=== PATIENT | male | born 2000 | race African-American/Black ===

== ENCOUNTER → 2019-01-26 | Outpatient (CLI) | payer OTHER ==
[~2019-01-26] MED LIST: ALBU2.5V8 IH; AZIT250T6 PO; CEPH-264 PO
--- NOTE | 2019-01-26 15:38 | RAD ---
Examination: Ultrasound left groin HISTORY: History of left groin pain COMPARISON: None available. Findings/ impression: Small left inguinal lymph nodes identified with the largest measuring 1.1 cm. No evidence of hernia identified. Electronically signed by: Alvin Cruz MD (01/26/2019 3:35 PM) [facility]
== END | disposition home or self-care (01) ==
LOC: US 14:33
PROVIDERS: ATTEND Family Medicine
DX: R10.32 Left lower quadrant pain (principal)
CPT/HCPCS: 76881

== ENCOUNTER → 2019-02-12 | Outpatient (CLI) | payer OTHER ==
--- NOTE | 2019-02-12 16:21 | RAD ---
EXAM: CT Abdomen and Pelvis without IV contrast CLINICAL HISTORY: Inguinal hernia, pain. COMPARISON: none TECHNIQUE: Helical CT of the abdomen and pelvis without intravenous contrast. Axial, coronal and sagittal reformatted images were generated. PQRS compliance statement - One or more of the following individualized dose reduction techniques were utilized for this study: 1. Automated exposure control 2. Adjustment of the mA and/or kV according to patient size 3. Use of iterative reconstruction technique FINDINGS: Lack of intravenous contrast limits evaluation of solid organs, vasculature, and lymph nodes. Lower chest: Lung bases are clear. Abdomen and Pelvis: No focal liver lesion. Gallbladder is normal. No biliary ductal dilatation. Pancreas is unremarkable. Spleen is normal in appearance with small splenule. Adrenal glands are unremarkable. No renal tract calculus. Bladder is decompressed otherwise unremarkable. No hydronephrosis or hydroureter. Moderate colonic stool content is seen. Appendix is normal. No evidence of bowel obstruction. No abdominal or pelvic ascites. No abdominal or pelvic lymphadenopathy. A few mildly prominent inguinal and mesenteric lymph nodes are seen. Aorta is normal in caliber. No definite inguinal or periumbilical hernia is identified. Bones: Mild prominence of the femoral head/neck junction bilaterally may be seen with cam-type CHRISTIANE. Otherwise osseous structures are grossly unremarkable. IMPRESSION: 1. No definite inguinal hernia is seen. 2. Moderate colonic stool content. No evidence for bowel obstruction. Electronically signed by: Farzad Dewey MD (02/12/2019 4:18 PM) [facility]
== END | disposition home or self-care (01) ==
LOC: CT 15:28
PROVIDERS: ATTEND Family Medicine
DX: K56.41 Fecal impaction (principal)
CPT/HCPCS: 74176

== ENCOUNTER 2019-06-03 05:19 | Emergency (ER) | payer OTHER ==
[~2019-06-03] VITALS: Ht 170.2 cm; Wt 116.6 kg
[2019-06-03 05:22] VITALS: BP 162/93
--- NOTE | 2019-06-03 05:46 | PHYS DOC ---
Past History Past Medical History: Asthma Past Surgical History: No Surgical History Smoking: Non-smoker Alcohol Use: None Drug Use: None Adult General Chief Complaint Chief Complaint: HEADACHE HPI HPI Patient is a 19-year-old male who presented to ER today for evaluation of left- sided facial tingling and numbness sensation, left upper extremity tingling and numbness sensation off and on for 3 months. Patient denies any severe headache but has some pressure in his head. Patient denies any blurry vision, no neck pain, no trouble speaking, no memory problem, he denies any injury, no cough or fever. he denies any medical problem, he is not on any medication. he denies any abdominal pain, no nausea vomiting. Patient has no family history of stroke disorder. aLL OTHER ros IS NEGATIVE UNLESS OTHERWISE NOTED IN hpi Review of Systems Review of Systems See above Allergies Allergies Allergies Coded Allergies Type Severity Reaction Last Updated Verified milk Adverse Reaction Intermediate n/v 02/16/14 Yes Physical Exam Physical Exam See above Constitutional: Well developed, well nourished, no acute distress, non-toxic appearance. [] HENT: Normocephalic, atraumatic, bilateral external ears normal, oropharynx moist, no oral exudates, nose normal. [] Eyes: PERRLA, EOMI, conjunctiva normal, no discharge. [] Neck: Normal range of motion, no tenderness, supple, no stridor. [] Cardiovascular:Heart rate regular rhythm, no murmur [] Lungs & Thorax: Bilateral breath sounds clear to auscultation [] Abdomen: Bowel sounds normal, soft, no tenderness, no masses, no pulsatile masses. [] Skin: Warm, dry, no erythema, no rash. [] Back: No tenderness, no CVA tenderness. [] Extremities: No tenderness, no cyanosis, no clubbing, ROM intact, no edema. [] Neurologic: Alert and oriented X 3, normal motor function, normal sensory function, no focal deficits noted. NO FOCAL NEUROLOGICAL DEFICIT. Psychologic: Affect normal, judgement normal, mood normal. [] EKG EKG [] Radiology/Procedures Radiology/Procedures [][address] [address] IMAGING REPORT Signed PATIENT: AKBAR MONTERO CACCOUNT: [id number] : 2000 LOCATION: ER AGE: 19 SEX: M EXAM STATUS: REG ER ORD. PHYSICIAN: ROGER MCDOWELL DO REASON: left side numbness, headache since 1130 pm yesterday PROCEDURE: CT HEAD WO CONTRAST CT head without contrast PQRS statement: CT scans at this facility use dose reduction including either automated exposure control, iterative reconstructions, and /or weight based radiation dosing via mA and kV modification when appropriate to reduce radiation dose to as low as reasonably achievable. HISTORY: Left-sided numbness and headache. FINDINGS: No intracranial hemorrhage, mass, hydrocephalus, extra-axial fluid collections or infarction. No acute ischemic change. Orbits, mastoids and bones are unremarkable. IMPRESSION: Normal exam. Electronically signed by: Ashanti Yo MD (06/03/2019 5:56 AM) [facility] DICTATED AND SIGNED BY: ASHANTI YO MD DATE: 06/03/19 0556 CC: ROGER MCDOWELL DO; NAM ERICKSON ~ Course & Med Decision Making Course & Med Decision Making Pertinent Labs and Imaging studies reviewed. (See chart for details) patient is a 19-year-old male who presented to ER with 3 month history of tingling sensation numbness off and on on the left-sided hit face and left upper extremity. CT scan of the head today did not show any acute problem. Patient had no neurological deficit. His NIHSS stroke is 0. He is no acute distress. Vital signs stable. Patient will be discharged home, follow-up with family doctor for outpatient evaluation. Dragon Disclaimer Dragon Disclaimer This electronic medical record was generated, in whole or in part, using a voice recognition dictation system. Departure Departure: Impression: Primary Impression: Paresthesia Disposition: HOME, SELF-CARE Condition: STABLE Referrals: NAM ERICKSON (PCP) follow up with your doctor on Friday for outpatient evaluation. Patient Instructions: ROGER Robert DO Jun 03, 2019 05:46
--- NOTE | 2019-06-03 05:59 | RAD ---
CT head without contrast PQRS statement: CT scans at this facility use dose reduction including either automated exposure control, iterative reconstructions, and /or weight based radiation dosing via mA and kV modification when appropriate to reduce radiation dose to as low as reasonably achievable. HISTORY: Left-sided numbness and headache. FINDINGS: No intracranial hemorrhage, mass, hydrocephalus, extra-axial fluid collections or infarction. No acute ischemic change. Orbits, mastoids and bones are unremarkable. IMPRESSION: Normal exam. Electronically signed by: Lyle Yo MD (06/03/2019 5:56 AM) [facility]
== END 2019-06-03 06:10 | disposition home or self-care (01) ==
LOC: ER 05:19
DX: R20.2 Paresthesia of skin (principal); R51 Headache; J45.909 Unspecified asthma, uncomplicated; Z91.011 Allergy to milk products
CPT/HCPCS: 70450; 99284-25

== ENCOUNTER 2019-09-26 08:10 | Emergency (ER) | payer OTHER ==
[~2019-09-26] VITALS: Ht 172.7 cm; Wt 109.0 kg
[2019-09-26 08:18] VITALS: BP 147/59
[2019-09-26] MEDS ORDERED: ALBU2.5V14 NEB (08:49)
[2019-09-26] MEDS ORDERED: ALBU2.5V8 IH (08:49)
--- NOTE | 2019-09-26 08:49 | PHYS DOC ---
Past History Past Medical History: Asthma Past Surgical History: No Surgical History Smoking: Non-smoker Alcohol Use: None Drug Use: None General Adult EDM: Chief Complaint: SHORTNESS OF BREATH HPI: HPI: 19-year-old male with past medical history of asthma and recent positive test for COVID-19 presents with report of chest tightness upon waking this morning. Patient did use his nebulizer machine as well as a MDI prior to arrival and felt symptoms had not improved before calling EMS. EMS reports O2 sats stable in route. No respiratory distress appreciated by EMS. Patient reports his symptoms initially 8 days ago including fever and chills, cough, and shortness of breath. Patient tested 6 days ago by the health department and tested positive. Reports significant other also positive who works at correctional facility. Patient reports his fever has improved. Denies trauma. Review of Systems: Review of Systems: Constitutional: Reports fever and chills- now resolved Eyes: Denies redness or eye pain HENT: Denies nasal congestion or sore throat Respiratory: Reports cough, wheezing, and shortness of breath Cardiovascular: Reports chest "tightness "; denies palpitations GI: Denies abdominal pain, nausea, or vomiting : Denies dysuria or hematuria Musculoskeletal: Denies back pain or joint pain Integument: Denies rash or skin lesions Neurologic: Denies headache, focal weakness or sensory changes Complete systems were reviewed and found to be within normal limits, except as documented in this note. Allergies: Allergies: Allergies Coded Allergies Type Severity Reaction Last Updated Verified milk Adverse Reaction Intermediate n/v 02/16/14 Yes Physical Exam: PE: Constitutional: Well developed, well nourished, no acute distress, non-toxic appearance HENT: Normocephalic, atraumatic, oropharynx moist Eyes: Conjunctiva normal, no discharge Neck: Normal range of motion, no tenderness, supple Cardiovascular: Heart rate normal, regular rhythm Lungs & Thorax: Bilateral breath sounds diminished at bases, no wheezing, no respiratory distress Abdomen: Soft, no tenderness Skin: Warm, dry, no erythema, no rash Extremities: No tenderness, ROM intact, no edema Neurologic: Alert and oriented X 3, normal motor function, normal sensory function, no focal deficits noted Psychologic: Affect normal, judgment normal Current Patient Data: Vital Signs: Vital Signs Date Time Temp Pulse Resp B/P (MAP) Pulse Ox O2 Delivery O2 Flow Rate FiO2 5/3/20 08:18 98.5 96 16 147/59 (88) 99 Room Air EKG: EKG: [] Radiology/Procedures: Radiology/Procedures: PROCEDURE: CHEST AP ONLY CHEST AP ONLY Clinical indications: Cough and shortness of air. COMPARISON: January 27, 2016. Findings: No acute lung infiltrate or pleural effusion or pulmonary edema or lung mass or pneumothorax is seen. The heart size, pulmonary vasculature, mediastinum and both terrell are unremarkable. Impression: No acute radiographic abnormality is seen. Electronically signed by: Sarmad Michelle MD (09/26/2019 8:47 AM) [id number] Course & Med Decision Making: Course & Med Decision Making Pertinent Imaging studies reviewed. (See chart for details) Patient presents with report of shortness of breath upon waking this morning. Patient does have past medical history of asthma. Reports also recently tested positive for COVID-19. Patient had previously used his nebulizer and his metered-dose inhaler. Upon arrival patient reports some improvement of his symptoms. Vital signs stable. Chest x-ray obtained without acute process. Patient stable for discharge with outpatient follow-up with PCP. Educated to continue self quarantined. A spacer provided for use with patient's MDI. Patient also provided with an incentive spirometer and educated to use 10 times in a row 5 times daily. Discussed findings and plan with patient, who acknowledges understanding and agreement. FYI: Full PPE utilized including N95, face shield, gown, feet coverings, and double gloves. COVID-19 CRITERIA: The patient was evaluated during the global COVID-19 pandemic, and that diagnosis was suspected/considered upon their initial presentation. Their evaluation, treatment and testing was consistent with current guidelines for patients who present with complaints or symptoms that may be related to COVID-19. Dragon Disclaimer: Dragon Disclaimer: This electronic medical record was generated, in whole or in part, using a voice recognition dictation system. Departure Departure: Impression: Primary Impression: Asthma exacerbation Qualified Codes: J45.21 - Mild intermittent asthma with (acute) exacerbation Additional Impression: COVID-19 virus infection Disposition: HOME, SELF-CARE Condition: IMPROVED Referrals: NAM ERICKSON (PCP) Patient Instructions: Asthma, Adult, [id number], Incentive Spirometer, Viral Syndrome Additional Instructions: Please continue to self quarantine. Tylenol for fever or discomfort. Increase fluid hydration. Scripts Albuterol Sulfate (ALBUTEROL SULFATE CONC NEB SOLN) 2.5 Mg/0.5 Ml Vial.neb 1 VIAL NEB Q4HRS PRN for WHEEZING, #60 VIAL Prov: HARSHA CARDOZA DO 09/26/19 Albuterol Sulfate (PROAIR HFA INHALER) 8.5 Gm Hfa.aer.ad 2 PUFF IH PRN Q4-6HRS PRN for wheezing, #1 INHALER 0 Refills Prov: HARSHA CARDOZA DO 09/26/19 COVID-19 Assessment COVID-19 Patient Risks: Age 65 or older: No Sign of co-morbidity: Yes Exp to person + for COVID: Yes Exp to PUI: No Travel from affected area: No Lower respiratory symptoms: Yes Fever: Yes PPE Use: Full PPE with N95 mask or PAPR: Yes HARSHA CARDOZA DO September 26, 2019 08:49
== END 2019-09-26 09:00 | disposition home or self-care (01) ==
LOC: ER 08:10
DX: J45.21 Mild intermittent asthma with (acute) exacerbation (principal); U07.1 COVID-19; Z91.011 Allergy to milk products
CPT/HCPCS: 71045; 99283